=== PATIENT | male | born 1990 | race Caucasian/White ===

== ENCOUNTER 2017-11-16 09:41 | Emergency (ER) | payer BC, OTHER ==
[2017-11-16 10:06] VITALS: BP 106/64
[2017-11-16] MEDS ORDERED: Ketorolac 30 MG/ML SDV IM ONE (10:52)
--- NOTE | 2017-11-16 10:59 | EDM.PDOC ---
Scribed by [address] 11/16/17 1059 for Johnny Mora MD ED HPI GENERAL MEDICAL PROBLEM - General Chief Complaint: Back Pain or Injury Stated Complaint: [id number] PULL MUSCLE 11/13 HELPING FRIEND MOVE Time Seen by Provider: 11/16/17 10:45 Source of Information: Reports: Patient, RN, RN Notes Reviewed History Limitations: Reports: No Limitations - History of Present Illness INITIAL COMMENTS - FREE TEXT/NARRATIVE: Patient presents to ER with complaint of left lateral rib pain that happened on ,11/13/17, after lifting and twisting to move furniture. Onset Date: 10/16/17 Duration: Getting Worse Location: Reports: Generalized Quality: Reports: Ache Severity: Moderate Improves with: Reports: Rest Worsens with: Reports: Breathing, Movement Context: Reports: Lifting Associated Symptoms: Reports: No Other Symptoms Left Chest Pain Score (Numeric/FACES): 6 - Related Data Allergies Allergy/AdvReac Type Severity Reaction Status Date / Time No Known Allergies Allergy Verified 09/25/14 22:02 Home Meds: Home Meds . [No Known Home Meds] 09/25/14 [History] Past Medical History - Past Health History Medical/Surgical History: Denies Medical/Surgical History Other HEENT History: states has always had "soft teeth". has partial plate Social & Family History - Tobacco Use Smoking Status *Q: Current Every Day Smoker Years of Tobacco use: 20 Packs/Tins Daily: 1 - Caffeine Use Caffeine Use: Reports: Coffee, Energy Drinks, Soda - Recreational Drug Use Recreational Drug Use: No - Living Situation & Occupation Living situation: Reports: with Significant Other Occupation: Unemployed ED ROS GENERAL - Review of Systems Review Of Systems: ROS reveals no pertinent complaints other than HPI. ED EXAM, GENERAL - Physical Exam Exam: See Below Exam Limited By: No Limitations General Appearance: Alert, WD/WN, No Apparent Distress Eye Exam: Bilateral Eye: Normal Inspection Ears: Normal External Exam, Normal Canal, Hearing Grossly Normal, Normal TMs Nose: Normal Inspection, Normal Mucosa, No Blood Throat/Mouth: Normal Inspection, Normal Lips, Normal Teeth, Normal Gums, Normal Oropharynx, Normal Voice, No Airway Compromise Head: Atraumatic, Normocephalic Neck: Normal Inspection, Supple, Non-Tender, Full Range of Motion Respiratory/Chest: No Respiratory Distress, Lungs Clear, Normal Breath Sounds, No Accessory Muscle Use, Splinting (left chest), Other (left anterolateral lower chest wall tender to palpation with no visible swelling,bruising or deformity. No bony crepitus. Skin is intact. ). No: Rales, Rhonchi, Wheezing Cardiovascular: Normal Peripheral Pulses, Regular Rate, Rhythm, No Edema, No Gallop, No JVD, No Murmur, No Rub GI/Abdominal: Normal Bowel Sounds, Soft, Non-Tender, No Organomegaly, No Distention, No Abnormal Bruit, No Mass (Male) Exam: Deferred Rectal (Males) Exam: Deferred Back Exam: Normal Inspection, Full Range of Motion, NT Extremities: Normal Inspection, Normal Range of Motion, Non-Tender, Normal Capillary Refill, No Pedal Edema Neurological: Alert, Oriented, CN II-XII Intact, Normal Cognition, Normal Gait, Normal Reflexes, No Motor/Sensory Deficits Psychiatric: Normal Affect, Normal Mood Skin Exam: Warm, Dry, Intact, Normal Color, No Rash Course - Vital Signs Last Recorded V/S: Last Vital Signs Temp 37.6 C 11/16/17 10:05 Pulse 64 11/16/17 10:05 Resp 16 11/16/17 10:05 BP 106/64 11/16/17 10:05 Pulse Ox 100 11/16/17 10:05 - Orders/Labs/Meds Meds: Medications Discontinued Medications Generic Name Dose Route Start Last Admin Trade Name Jeremyq PRN Reason Stop Dose Admin Ketorolac Tromethamine 60 mg 11/16/17 10:52 11/16/17 10:57 Toradol IM 11/16/17 10:53 60 mg ONETIME ONE Administration Departure - Departure Time of Disposition: 10:55 Disposition: Home, Self-Care 01 Condition: Good Clinical Impression: Costochondritis Costochondral joint sprain Qualifiers: Encounter type: initial encounter Qualified Code(s): S23.41XA - Sprain of ribs , initial encounter - Discharge Information Instructions: Costochondritis, [id number], Muscle Strain, [id number] Forms: ED Department Discharge Additional Instructions: RX: Naprosyn 500mg. Follow up in clinic if not improved in 7 to 10 days. Activity as tolerated. Use a heating pad or moist hot towel over the area of pain as needed. I have read and agree with the documentation that has been completed regarding this visit. By signing this record, I attest that the documentation was completed in my physical presence and is an accurate record of the encounter.
== END 2017-11-16 11:00 | disposition home or self-care (01) ==
LOC: DL.ED 09:41
DX: S23.41XA Sprain of ribs, initial encounter (principal); M94.0 Chondrocostal junction syndrome [Tietze]; F17.210 Nicotine dependence, cigarettes, uncomplicated; X50.0XXA Overexertion from strenuous movement or load, initial encounter
CPT/HCPCS: 96372; 99283; J1885

== ENCOUNTER 2018-05-06 18:06 | Emergency (ER) | payer BC ==
[2018-05-06 18:43] VITALS: BP 122/75
--- NOTE | 2018-05-06 19:28 | EDM.PDOC ---
ED HPI GENERAL MEDICAL PROBLEM - General Chief Complaint: Lower Extremity Injury/Pain Stated Complaint: PAIN LEFT FOOT WHEN STRETCHES WRONG Time Seen by Provider: 05/06/18 20:06 Source of Information: Reports: Patient History Limitations: Reports: No Limitations - History of Present Illness INITIAL COMMENTS - FREE TEXT/NARRATIVE: c/o pain left great toe with extension, denies injury, If full extension sometimes pain radiates up leg. Present x one week. Has not taken anything for pain. No change in shoes No other symptoms Toe-Hailux Pain Score (Numeric/FACES): 5 - Related Data Allergies Allergy/AdvReac Type Severity Reaction Status Date / Time No Known Allergies Allergy Verified 05/06/18 18:40 Home Meds: Home Meds . [No Known Home Meds] 09/25/14 [History] Past Medical History - Past Health History Medical/Surgical History: Denies Medical/Surgical History Other HEENT History: states has always had "soft teeth". has partial plate Cardiovascular History: Reports: None Respiratory History: Reports: None Gastrointestinal History: Reports: None Genitourinary History: Reports: None Musculoskeletal History: Reports: None Neurological History: Reports: None Psychiatric History: Reports: None Endocrine/Metabolic History: Reports: None Hematologic History: Reports: None Immunologic History: Reports: None Oncologic (Cancer) History: Reports: None Dermatologic History: Reports: None - Infectious Disease History Infectious Disease History: Reports: None - Past Surgical History Head Surgeries/Procedures: Reports: None Social & Family History - Family History Family Medical History: Noncontributory - Tobacco Use Smoking Status *Q: Never Smoker Second Hand Smoke Exposure: No - Caffeine Use Caffeine Use: Reports: Soda - Recreational Drug Use Recreational Drug Use: No - Living Situation & Occupation Living situation: Reports: with Significant Other Occupation: Unemployed Review of Systems - Review of Systems Review Of Systems: See Below Constitutional: Denies: Chills, Fever Eyes: Reports: No Symptoms Ears: Reports: No Symptoms Nose: Reports: No Symptoms Mouth/Throat: Reports: No Symptoms Respiratory: Reports: No Symptoms Cardiovascular: Reports: No Symptoms GI/Abdominal: Reports: No Symptoms Musculoskeletal: Reports: Joint Pain Skin: Reports: No Symptoms ED EXAM, GENERAL - Physical Exam Exam: See Below Exam Limited By: No Limitations General Appearance: Alert, No Apparent Distress, Thin Eye Exam: Bilateral Eye: EOMI Ears: Normal External Exam Nose: Normal Inspection Throat/Mouth: Other (teeth absent) Head: Atraumatic, Normocephalic Neck: Normal Inspection, Full Range of Motion Respiratory/Chest: No Respiratory Distress, Lungs Clear Cardiovascular: Normal Peripheral Pulses, Regular Rate, Rhythm Back Exam: Full Range of Motion Extremities: Normal Range of Motion. No: Joint Swelling, Limited Range of Motion, Increased Warmth, Pallor Neurological: Alert, Oriented. No: Normal Cognition Skin Exam: Warm, Dry, Intact, Erythema (mild erdness left great toe DIP lateral upper border of nail faint erythema, no tenderness, mild ingrown nail) Course - Vital Signs Last Recorded V/S: Last Vital Signs Temp 98.6 F 05/06/18 18:40 Pulse 70 05/06/18 18:40 Resp 16 05/06/18 18:40 BP 122/75 05/06/18 18:40 Pulse Ox 98 05/06/18 18:40 - Orders/Labs/Meds Labs: Laboratory Tests 05/06/18 Range/Units 19:28 Uric Acid 5.2 (2.6-7.2) mg/dL Departure - Departure Time of Disposition: 20:07 Disposition: Home, Self-Care 01 Condition: Good Clinical Impression: Pain of left great toe - Discharge Information *PRESCRIPTION DRUG MONITORING PROGRAM REVIEWED*: No *COPY OF PRESCRIPTION DRUG MONITORING REPORT IN PATIENT XAVIER: No Instructions: Ingrown Toenail, Pain Medicine Instructions, [id number] Referrals: PCP,None [Primary Care Provider] - Forms: ED Department Discharge Additional Instructions: tylenol or ibuprofen for discomfort stiff boot increase fluids careful trimming on toenail. let corner edges grow out follwo up in clinic if not improving
== END 2018-05-06 20:17 | disposition home or self-care (01) ==
LOC: DL.ED 18:06
DX: K29.00 Acute gastritis without bleeding (principal); Q41.0 Congenital absence, atresia and stenosis of duodenum; E11.9 Type 2 diabetes mellitus without complications; Z88.1 Allergy status to other antibiotic agents; Z88.8 Allergy status to other drugs, medicaments and biological substances; Z79.899 Other long term (current) drug therapy
CPT/HCPCS: 36415; 84550; 99283

== ENCOUNTER 2019-04-13 22:20 | Emergency (ER) | payer BC ==
[2019-04-13 23:12] VITALS: BP 126/84; PULSE 75
--- NOTE | 2019-04-14 00:14 | EDM.PDOC ---
ED HPI GENERAL MEDICAL PROBLEM - General Chief Complaint: Headache Stated Complaint: SHAKING HEADACHES, BEGAN NEW PSYCH MEDS Time Seen by Provider: 04/13/19 23:10 Source of Information: Reports: Patient History Limitations: Reports: No Limitations - History of Present Illness INITIAL COMMENTS - FREE TEXT/NARRATIVE: Patient seen in clinic started on Sertraline for depression. First dose today, has felt shaky all day and has headache. No nausea or vomiting. no suicidal thoughts reported. - Related Data Allergies Allergy/AdvReac Type Severity Reaction Status Date / Time No Known Allergies Allergy Verified 09/12/18 00:04 Home Meds: Home Meds . [No Known Home Meds] 09/25/14 [History] Past Medical History - Past Health History Medical/Surgical History: Denies Medical/Surgical History Other HEENT History: states has always had "soft teeth". has partial plate Cardiovascular History: Reports: None Respiratory History: Reports: None Gastrointestinal History: Reports: None Genitourinary History: Reports: None Musculoskeletal History: Reports: None Neurological History: Reports: None Psychiatric History: Reports: Depression Endocrine/Metabolic History: Reports: None Hematologic History: Reports: None Immunologic History: Reports: None Oncologic (Cancer) History: Reports: None Dermatologic History: Reports: None - Infectious Disease History Infectious Disease History: Reports: None - Past Surgical History Head Surgeries/Procedures: Reports: None Social & Family History - Family History Family Medical History: Noncontributory - Tobacco Use Smoking Status *Q: Current Every Day Smoker Years of Tobacco use: 10 Packs/Tins Daily: 1 Second Hand Smoke Exposure: Yes - Caffeine Use Caffeine Use: Reports: Soda - Recreational Drug Use Recreational Drug Use: No - Living Situation & Occupation Living situation: Reports: with Significant Other Occupation: Unemployed ED ROS GENERAL - Review of Systems Review Of Systems: Comprehensive ROS is negative, except as noted in HPI. - Physical Exam Exam: See Below Exam Limited By: No Limitations General Appearance: Alert, Anxious Eye Exam: Bilateral Eye: EOMI Ears: Normal External Exam Nose: Normal Inspection Throat/Mouth: Normal Inspection Head Exam: Atraumatic, Normocephalic Neck: Normal Inspection Respiratory/Chest: No Respiratory Distress, Normal Breath Sounds Cardiovascular: Normal Peripheral Pulses, Regular Rate, Rhythm Neuro Exam (Abbreviated): Alert, Oriented, CN II-XII Intact, Normal Cognition, Normal Gait, No Motor/Sensory Deficits Back Exam: Full Range of Motion Extremities: Normal Range of Motion Psychiatric: Anxious, Other (wringing hands, no tremor) Skin Exam: Warm, Dry, Intact, Normal Color Course - Vital Signs Last Recorded V/S: Last Vital Signs Temp 98.8 F 04/13/19 23:06 Pulse 75 04/13/19 23:06 Resp 18 04/13/19 23:06 BP 126/84 04/13/19 23:06 Pulse Ox 100 04/13/19 23:06 Departure - Departure Time of Disposition: 00:09 Disposition: Home, Self-Care 01 Condition: Good Clinical Impression: Medication adverse effect Qualifiers: Encounter type: initial encounter Qualified Code(s): T50.905A - Adverse effect of unspecified drugs, medicaments and biological substances, initial encounter - Discharge Information *PRESCRIPTION DRUG MONITORING PROGRAM REVIEWED*: No *COPY OF PRESCRIPTION DRUG MONITORING REPORT IN PATIENT XAVIER: No Instructions: Serotonin Syndrome Referrals: Sadaf Stephens MD [Primary Care Provider] - Forms: ED Department Discharge Additional Instructions: Decrease sertraline to 12.5mg or 1/2 tablet daily at bed x 4 days then increase to 25mg follow up with primary provider on Friday increase fluids take medication with food Sepsis Event Note - Evaluation Sepsis Screening Result: No Definite Risk - Focused Exam Vital Signs: Vital Signs Temp Pulse Resp BP Pulse Ox 04/13/19 23:06 98.8 F 75 18 126/84 100 Date Exam was Performed: 04/14/19 Time Exam was Performed: 06:32
== END 2019-04-14 00:16 | disposition home or self-care (01) ==
LOC: DL.ED 22:20
DX: G44.40 Drug-induced headache, not elsewhere classified, not intractable (principal); R25.9 Unspecified abnormal involuntary movements; T43.225A Adverse effect of selective serotonin reuptake inhibitors, initial encounter; F32.9 Major depressive disorder, single episode, unspecified; F17.210 Nicotine dependence, cigarettes, uncomplicated
CPT/HCPCS: 99283

== ENCOUNTER 2019-08-11 12:08 | Emergency (ER) | payer BC ==
[2019-08-11 12:46] VITALS: BP 125/74; PULSE 67
[2019-08-11] MEDS ORDERED: Bacitracin Oint 1 GM U/D Packet TOP ONE (13:00)
--- NOTE | 2019-08-11 13:06 | EDM.PDOC ---
ED HPI GENERAL MEDICAL PROBLEM - General Chief Complaint: Upper Extremity Injury/Pain Stated Complaint: SMASHED THUMB WITH BACK PART OF AXE Time Seen by Provider: 08/11/19 12:56 Source of Information: Reports: Patient History Limitations: Reports: No Limitations - History of Present Illness INITIAL COMMENTS - FREE TEXT/NARRATIVE: This 28 yo male patient reports to the ED after hitting his left thumb with the back of an ax. The patient was splitting wood using a awl when he missed the awl with the axe an hit his thumb. The patient reports he had a tetanus shot about 1 year ago. Onset: Today Duration: Minutes: Location: Reports: Upper Extremity, Left Quality: Reports: Ache, Pressure Severity: Moderate Improves with: Reports: Rest Worsens with: Reports: Movement Context: Reports: Other Associated Symptoms: Reports: No Other Symptoms - Related Data Allergies Allergy/AdvReac Type Severity Reaction Status Date / Time No Known Allergies Allergy Verified 09/12/18 00:04 Home Meds: Home Meds . [No Known Home Meds] 09/25/14 [History] Past Medical History - Past Health History Medical/Surgical History: Denies Medical/Surgical History Other HEENT History: states has always had "soft teeth". has partial plate Cardiovascular History: Reports: None Respiratory History: Reports: None Gastrointestinal History: Reports: None Genitourinary History: Reports: None Musculoskeletal History: Reports: None Neurological History: Reports: None Psychiatric History: Reports: Depression Endocrine/Metabolic History: Reports: None Hematologic History: Reports: None Immunologic History: Reports: None Oncologic (Cancer) History: Reports: None Dermatologic History: Reports: None - Infectious Disease History Infectious Disease History: Reports: None - Past Surgical History Head Surgeries/Procedures: Reports: None Social & Family History - Family History Family Medical History: Noncontributory - Caffeine Use Caffeine Use: Reports: Soda - Living Situation & Occupation Living situation: Reports: with Significant Other Occupation: Unemployed Review of Systems - Review of Systems Review Of Systems: Comprehensive ROS is negative, except as noted in HPI. ED EXAM, GENERAL - Physical Exam Exam: See Below Exam Limited By: No Limitations General Appearance: Alert, WD/WN, Mild Distress Eye Exam: Bilateral Eye: EOMI, Normal Inspection, PERRL Ears: Normal External Exam, Normal Canal, Hearing Grossly Normal, Normal TMs Nose: Normal Inspection, Normal Mucosa, No Blood Throat/Mouth: Normal Inspection, Normal Lips, Normal Teeth, Normal Gums, Normal Oropharynx, Normal Voice, No Airway Compromise Head: Atraumatic Neck: Normal Inspection, Supple, Non-Tender, Full Range of Motion Respiratory/Chest: No Respiratory Distress, Lungs Clear, Normal Breath Sounds, No Accessory Muscle Use, Chest Non-Tender Cardiovascular: Normal Peripheral Pulses, Regular Rate, Rhythm, No Edema, No Gallop, No JVD, No Murmur, No Rub GI/Abdominal: Normal Bowel Sounds, Soft, Non-Tender, No Organomegaly, No Distention, No Abnormal Bruit, No Mass (Male) Exam: Deferred Rectal (Males) Exam: Deferred Back Exam: Normal Inspection, Full Range of Motion, NT Extremities: Arm Pain (left thumb pain) Neurological: Alert, Oriented, CN II-XII Intact, Normal Cognition, Normal Gait, Normal Reflexes, No Motor/Sensory Deficits Psychiatric: Normal Affect, Normal Mood Skin Exam: Wound/Incision (to the left distal thumb) Lymphatic: No Adenopathy ED TRAUMA EXTREMITY PROCEDURES - Splinting Left Thumb Splint Site: Left thumb Pre-Procedure NV Status: Normal Post-Procedure NV Status: Normal Splint Material: Aluminum-Foam Splint Design: Volar Applied & Form Fitted By: Nurse Provider Post-Splint Application NV Check: NV Status Normal, Good Position Complications: No Course - Vital Signs Last Recorded V/S: Last Vital Signs Temp 36.7 C 08/11/19 12:35 Pulse 67 08/11/19 12:35 Resp 20 08/11/19 12:35 BP 125/74 08/11/19 12:35 Pulse Ox 99 08/11/19 12:35 - Orders/Labs/Meds Orders: Active Orders 24 hr Category Date Time Status Fingers Thumb Lt FA [CR] Urgent Exams 08/11/19 12:34 Taken Bacitracin [Bacitracin Oint 1 GM] Med 08/11/19 13:00 Once 1 dose TOP ONETIME ONE Departure - Departure Time of Disposition: 13:04 Disposition: Home, Self-Care 01 Condition: Fair Clinical Impression: Open fracture of tuft of distal phalanx of left thumb - Discharge Information *PRESCRIPTION DRUG MONITORING PROGRAM REVIEWED*: Not Applicable *COPY OF PRESCRIPTION DRUG MONITORING REPORT IN PATIENT XAVIER: Not Applicable Instructions: Finger Fracture, Adult, [id number] Care Plan Goals: The patient was advised of the examination and x-ray results during the visit. The patient's finger was splinted with a padded aluminum splint and dressed with a non-adhering bandage. The patient was discharged with a script for Keflex (500 mg) #30 to take 1 by mouth 3 times per day for 10 days. The patient was encouraged to rest, ice and elevate his left hand. The patient was given a work note to return to work on 08/13/19. If the patient has any additional symptoms or concerns, the patient should either return to the emergency department or visit his primary care facility. Sepsis Event Note - Evaluation Sepsis Screening Result: No Definite Risk - Focused Exam Vital Signs: Vital Signs Temp Pulse Resp BP Pulse Ox 08/11/19 12:35 36.7 C 67 20 125/74 99 Date Exam was Performed: 08/11/19 Time Exam was Performed: 13:00 - My Orders Last 24 Hours: My Active Orders 08/11/19 12:34 Fingers Thumb Lt FA [CR] Urgent 08/11/19 13:00 Bacitracin [Bacitracin Oint 1 GM] 1 dose TOP ONETIME ONE - Assessment/Plan Last 24 Hours: My Active Orders 08/11/19 12:34 Fingers Thumb Lt FA [CR] Urgent 08/11/19 13:00 Bacitracin [Bacitracin Oint 1 GM] 1 dose TOP ONETIME ONE
== END 2019-08-11 13:20 | disposition home or self-care (01) ==
LOC: DL.ED 12:08
DX: S62.522B Displaced fracture of distal phalanx of left thumb, initial encounter for open fracture (principal); W27.0XXA Contact with workbench tool, initial encounter
CPT/HCPCS: 29125; 73140-FA; 99283-25

== ENCOUNTER 2020-09-01 03:33 | Emergency (ER) | payer BC, OTHER ==
--- NOTE | 2020-09-01 03:50 | EDM.PDOC ---
ED HPI GENERAL MEDICAL PROBLEM - General Stated Complaint: FEET ISSUES HARD TO WALK Time Seen by Provider: 09/01/20 06:10 Source of Information: Reports: Patient, RN History Limitations: Reports: No Limitations - History of Present Illness INITIAL COMMENTS - FREE TEXT/NARRATIVE: EDdf with c/o bilateral foot pain for last month and half. Seen in clinic one time told to wear flip flops. Has not followed up with clinicDenied injury. Describes burning sensation. Bilateral Feet Pain Score (Numeric/FACES): 10 - Related Data Allergies Allergy/AdvReac Type Severity Reaction Status Date / Time No Known Allergies Allergy Verified 09/12/18 00:04 Home Meds: Home Meds . [No Known Home Meds] 09/25/14 [History] Past Medical History - Past Health History Medical/Surgical History: Denies Medical/Surgical History Other HEENT History: states has always had "soft teeth". has partial plate Cardiovascular History: Reports: None Respiratory History: Reports: None Gastrointestinal History: Reports: None Genitourinary History: Reports: None Musculoskeletal History: Reports: None Neurological History: Reports: None Psychiatric History: Reports: Depression Endocrine/Metabolic History: Reports: None Hematologic History: Reports: None Immunologic History: Reports: None Oncologic (Cancer) History: Reports: None Dermatologic History: Reports: None - Infectious Disease History Infectious Disease History: Reports: None - Past Surgical History Head Surgeries/Procedures: Reports: None Social & Family History - Family History Family Medical History: No Pertinent Family History - Caffeine Use Caffeine Use: Reports: Soda - Living Situation & Occupation Living situation: Reports: with Significant Other Occupation: Unemployed ED ROS GENERAL - Review of Systems Review Of Systems: Comprehensive ROS is negative, except as noted in HPI. ED EXAM, GENERAL - Physical Exam Exam: See Below Exam Limited By: No Limitations General Appearance: Alert, Mild Distress, Thin Eye Exam: Bilateral Eye: EOMI Ears: Hearing Grossly Normal Throat/Mouth: Normal Voice Head: Atraumatic, Normocephalic Respiratory/Chest: No Respiratory Distress, Normal Breath Sounds Cardiovascular: Normal Peripheral Pulses, Regular Rate, Rhythm Neurological: Alert, Oriented Psychiatric: Normal Affect Skin Exam: Warm, Erythema, Rash (bilateral tinea plantar and between toes., calused aound heels cracked, superfical blistering between toes, plantar surface errythematous) Course - Vital Signs Last Recorded V/S: Last Vital Signs Temp 98.1 F 09/01/20 03:48 Pulse 80 09/01/20 03:48 Resp 16 09/01/20 03:48 BP 130/77 09/01/20 03:48 Pulse Ox 99 09/01/20 03:48 Departure - Departure Time of Disposition: 06:44 Disposition: Home, Self-Care 01 Condition: Good Clinical Impression: Tinea pedis Qualifiers: Laterality: bilateral Qualified Code(s): B35.3 - Tinea pedis - Discharge Information *PRESCRIPTION DRUG MONITORING PROGRAM REVIEWED*: No *COPY OF PRESCRIPTION DRUG MONITORING REPORT IN PATIENT XAVIER: No Instructions: Athlete's Foot, [id number] Referrals: PCP,None [Primary Care Provider] - Forms: ED Department Discharge Additional Instructions: wash feet twice daily clean dry sock feet open to air when possible tinnactin cream twice daily to affected area until healed clinic follow up next week
[2020-09-01 04:19] VITALS: BP 130/77; PULSE 80
== END 2020-09-01 06:52 | disposition home or self-care (01) ==
LOC: DL.ED 03:33
DX: B35.3 Tinea pedis (principal)
CPT/HCPCS: 99283

== ENCOUNTER 2021-01-07 19:39 | Emergency (ER) | payer OTHER ==
[2021-01-07 19:55] VITALS: BP 131/62; PULSE 91
[2021-01-07] MEDS ORDERED: Acetaminophen 325 MG Tab PO ONE (20:02)
[2021-01-07 20:51] LABS: CORONAVIRUS COVID-19 NAA NEGATIVE (NEGATIVE)
[2021-01-07 21:10] LABS: ANION GAP 12.5 mEq/L (7-13); CHLORIDE,CL 103 mmol/L (98-107); SODIUM,NA 140 mmol/L (136-145)
[2021-01-07] MEDS ORDERED: Benzonatate 100 MG Cap PO ONE (21:14)
[2021-01-07] MEDS ORDERED: Azithromycin 250 MG Tab PO ONE (21:14)
--- NOTE | 2021-01-07 21:14 | EDM.PDOC ---
ED HPI GENERAL MEDICAL PROBLEM - General Chief Complaint: ENT Problem Stated Complaint: SINUS INFECTION Time Seen by Provider: 01/07/21 19:55 Source of Information: Reports: Patient History Limitations: Reports: No Limitations - History of Present Illness INITIAL COMMENTS - FREE TEXT/NARRATIVE: ED with c/o cold sx, congestion cough, fever, upper body aches, cough productive at times. Has been using oTC cough cold medications, not helping much. No nausea vomiting or diarrhea, appetite decreased. some loss of taste and smell from congestion. Onset sx one week ago, felt better yesterday then worse today. - Related Data Allergies Allergy/AdvReac Type Severity Reaction Status Date / Time No Known Allergies Allergy Verified 09/12/18 00:04 Home Meds: Home Meds . [No Known Home Meds] 09/25/14 [History] Past Medical History - Past Health History Medical/Surgical History: Denies Medical/Surgical History Other HEENT History: states has always had "soft teeth". has partial plate Cardiovascular History: Reports: None Respiratory History: Reports: None Gastrointestinal History: Reports: None Genitourinary History: Reports: None Musculoskeletal History: Reports: None Neurological History: Reports: None Psychiatric History: Reports: ADHD, Bipolar, Depression, PTSD Endocrine/Metabolic History: Reports: None Hematologic History: Reports: None Immunologic History: Reports: None Oncologic (Cancer) History: Reports: None Dermatologic History: Reports: None - Infectious Disease History Infectious Disease History: Reports: None - Past Surgical History Head Surgeries/Procedures: Reports: None HEENT Surgical History: Reports: None Social & Family History - Family History Family Medical History: No Pertinent Family History - Tobacco Use Tobacco Use Status *Q: Current Every Day Tobacco User Years of Tobacco use: 8 Packs/Tins Daily: 1 - Caffeine Use Caffeine Use: Reports: Soda - Living Situation & Occupation Living situation: Reports: with Significant Other Occupation: Unemployed ED ROS GENERAL - Review of Systems Review Of Systems: Comprehensive ROS is negative, except as noted in HPI. ED EXAM, GENERAL - Physical Exam Exam: See Below Exam Limited By: No Limitations General Appearance: Alert, Mild Distress, Thin Eye Exam: Bilateral Eye: EOMI Ears: Normal External Exam Nose: Normal Inspection Throat/Mouth: Normal Inspection Head: Atraumatic, Normocephalic Neck: Normal Inspection Respiratory/Chest: No Respiratory Distress, Decreased Breath Sounds, Wheezing (expiratory) Cardiovascular: Normal Peripheral Pulses, Regular Rate, Rhythm GI/Abdominal: Normal Bowel Sounds, Soft Course - Vital Signs Last Recorded V/S: Last Vital Signs Temp 101.5 F H 01/07/21 20:10 Pulse 91 01/07/21 19:51 Resp 20 01/07/21 19:51 BP 131/62 01/07/21 19:51 Pulse Ox 96 01/07/21 19:51 - Orders/Labs/Meds Orders: Active Orders 24 hr Category Date Time Status CXR [Chest 1V Frontal] [CR] Urgent Exams 01/07/21 20:24 Taken CULTURE BLOOD [BC] Stat Lab 01/07/21 20:35 Received LACTIC ACID [CHEM] Stat Lab 01/07/21 20:35 Received Labs: Laboratory Tests 01/07/21 01/07/21 01/07/21 Range/Units 20:11 20:35 20:35 WBC 12.2 H (5.0-10.0) 10^3/uL RBC 4.01 L (4.6-6.2) 10^6/uL Hgb 12.8 L (14.0-18.0) g/dL Hct 38.1 L (40.0-54.0) % MCV 95.0 (80-100) fL MCH 31.9 (27.0-34.0) pg MCHC 33.6 (33.0-35.0) g/dL Plt Count 289 (150-450) 10^3/uL Neut % (Auto) 75.3 H (42.2-75.2) % Lymph % (Auto) 13.3 L (20.5-50.1) % [place] % (Auto) 9.9 H (2-8) % Eos % (Auto) 1.3 (1.0-3.0) % Baso % (Auto) 0.2 (0.0-1.0) % Sodium 140 (136-145) mmol/L Potassium 3.5 (3.5-5.1) mmol/L Chloride 103 (98-107) mmol/L Carbon Dioxide 28 (21-32) mmol/L Anion Gap 12.5 (7-13) mEq/L BUN 9 (7-18) mg/dL Creatinine 0.82 (0.70-1.30) mg/dL Est Cr Clr Drug Dosing 105.75 mL/min Estimated GFR (MDRD) > 60 BUN/Creatinine Ratio 11.0 (No establ ref range) Glucose 95 (70-99) mg/dL Calcium 8.7 (8.5-10.1) mg/dL Total Bilirubin 0.4 (0.2-1.0) mg/dL AST 12 L (15-37) U/L ALT 20 (16-63) U/L Alkaline Phosphatase 54 (46-116) U/L Total Protein 7.1 (6.4-8.2) g/dL Albumin 3.2 L (3.4-5.0) g/dL Globulin 3.9 Albumin/Globulin Ratio 0.82 Influenza Type A RNA Negative (NEGATIVE) Influenza Type B RNA Negative (NEGATIVE) SARS-CoV-2 RNA (YE) Negative (NEGATIVE) Meds: Medications Discontinued Medications Generic Name Dose Route Start Last Admin Trade Name Freq PRN Reason Stop Dose Admin Acetaminophen 650 mg 01/07/21 20:02 01/07/21 20:10 Acetaminophen 325 Mg Tab PO 01/07/21 20:03 650 mg NOW ONE Administration Departure - Departure Time of Disposition: 21:11 Disposition: Home, Self-Care 01 Condition: Good Clinical Impression: Pneumonia - Discharge Information *PRESCRIPTION DRUG MONITORING PROGRAM REVIEWED*: No *COPY OF PRESCRIPTION DRUG MONITORING REPORT IN PATIENT XAVIER: No Instructions: Community-Acquired Pneumonia, Adult Forms: ED Department Discharge Additional Instructions: azithromycin 250mg daily humidification muccinex or robitussin per label instructions albuterol inhaler 2 puffs every 4 hours as needed for cough/ wheeze increase fluids diet as tolerated follow u if symptoms worsen Sepsis Event Note (ED) - Evaluation Sepsis Screening Result: No Definite Risk - Focused Exam Vital Signs: Vital Signs Temp Temp Pulse Resp BP Pulse Ox 01/07/21 20:10 101.5 F H 01/07/21 19:51 101.5 F H 91 20 131/62 96 - My Orders Last 24 Hours: My Active Orders 01/07/21 20:24 CXR [Chest 1V Frontal] [CR] Urgent 01/07/21 20:35 CULTURE BLOOD [BC] Stat LACTIC ACID [CHEM] Stat - Assessment/Plan Last 24 Hours: My Active Orders 01/07/21 20:24 CXR [Chest 1V Frontal] [CR] Urgent 01/07/21 20:35 CULTURE BLOOD [BC] Stat LACTIC ACID [CHEM] Stat
--- NOTE | 2021-01-07 21:54 | CR ---
PROCEDURE INFORMATION: Exam: XR Chest Exam date and time: 01/07/2021 8:27 PM Age: 30 years old Clinical indication: Cough and fever; Additional info: Cough fever TECHNIQUE: Imaging protocol: XR of the chest. Views: 1 view. COMPARISON: No relevant prior studies available. FINDINGS: Lungs: Left lower lobe airspace disease suspicious for pneumonia. Pleural spaces: No pleural effusion. No pneumothorax. Heart/Mediastinum: The cardiac silhouette is mildly enlarged. Mediastinal contours are unremarkable. Bones/joints: Unremarkable for age. IMPRESSION: 1. Left lower lobe airspace disease suspicious for pneumonia. Recommend followup chest x-ray to ensure resolution. 2. The cardiac silhouette is mildly enlarged.
== END 2021-01-07 21:34 | disposition home or self-care (01) ==
LOC: DL.ED 19:39
DX: J18.9 Pneumonia, unspecified organism (principal); Z72.0 Tobacco use; Z20.822 Contact with and (suspected) exposure to COVID-19
CPT/HCPCS: 0240U; 36415; 71045; 80053; 83605; 85025; 87040; 99283; A9270

== ENCOUNTER 2021-01-10 19:28 | Emergency (ER) | payer OTHER ==
--- NOTE | 2021-01-10 19:50 | EDM.PDOC ---
<John Hess - Last Filed: 01/10/21 19:40> ED HPI GENERAL MEDICAL PROBLEM - General Chief Complaint: Respiratory Problem Stated Complaint: 98.3, PNEUMONIA, HARD TIME SLEEPING PER PT Time Seen by Provider: 01/10/21 20:15 - Related Data Allergies Allergy/AdvReac Type Severity Reaction Status Date / Time No Known Allergies Allergy Verified 01/10/21 19:36 Home Meds: Home Meds Albuterol Sulfate [Proair Digihaler] 01/10/21 [History] Azithromycin 250 mg PO DAILY 01/10/21 [History] guaiFENesin [Robitussin] 01/10/21 [History] Past Medical History - Past Health History Medical/Surgical History: Denies Medical/Surgical History Other HEENT History: states has always had "soft teeth". has partial plate Cardiovascular History: Reports: None Respiratory History: Reports: None Gastrointestinal History: Reports: None Genitourinary History: Reports: None Musculoskeletal History: Reports: None Neurological History: Reports: None Psychiatric History: Reports: ADHD, Bipolar, Depression, PTSD Endocrine/Metabolic History: Reports: None Hematologic History: Reports: None Immunologic History: Reports: None Oncologic (Cancer) History: Reports: None Dermatologic History: Reports: None - Infectious Disease History Infectious Disease History: Reports: None - Past Surgical History Head Surgeries/Procedures: Reports: None HEENT Surgical History: Reports: None Social & Family History - Family History Family Medical History: No Pertinent Family History - Caffeine Use Caffeine Use: Reports: Soda - Living Situation & Occupation Living situation: Reports: with Significant Other Occupation: Unemployed Departure - Departure Disposition: Home, Self-Care 01 Clinical Impression: Pneumonia Qualifiers: Pneumonia type: due to unspecified organism Laterality: bilateral Lung location: lower lobe of lung Qualified Code(s): J18.9 - Pneumonia, unspecified organism - Discharge Information Instructions: Community-Acquired Pneumonia, Adult, [id number] Referrals: PCP,None [Primary Care Provider] - Forms: ED Department Discharge Additional Instructions: RX: Augmentin 875 mg by mouth twice daily for 7 days. Tylenol and/or Ibuprofen as needed for fevers. Follow-up with Family Doctor within 7 days or sooner as needed. <Pat Temple - Last Filed: 01/10/21 20:50> ED HPI GENERAL MEDICAL PROBLEM - General Source of Information: Reports: Patient History Limitations: Reports: No Limitations - History of Present Illness INITIAL COMMENTS - FREE TEXT/NARRATIVE: The patient reports a 7-10 day history of cough. He presented to the ED 4-days ago when he was diagnosed with pneumonia and discharged with a course of azithromycin. He reports he stayed home from work until yesterday and returned to work today. He reports he was feeling well earlier but began to notice worsening of his cough and shortness of breath. He denies chest pain. He reports some right shoulder and axilla pain with coughing. She denies hemoptysis. He denies fevers, chills, nausea, vomiting, diarrhea, constipation. He reports a history of white mouth plaque and sore throat over the last week. He reports he is currently sexually active without new partners. He denies weight loss. BMI is currently 16.6. He denies concern for STIs. He reports he was last tested for HIV earlier this year which was negative. He reports a history of smoking tobacco 1 pack/day. He reports 2 beers on average/night. He denies recreational drug use. He denies other symptoms or concerns at this time. Left Shoulder Pain Score (Numeric/FACES): 3 ED ROS GENERAL - Review of Systems Review Of Systems: See Below Constitutional: Reports: Fever, Chills, Malaise, Fatigue, Decreased Appetite. Denies: Night Sweats, Weight Loss HEENT: Reports: Throat Pain. Denies: Ear Pain, Eye Pain, Nosebleed Respiratory: Reports: Shortness of Breath, Cough, Sputum. Denies: Wheezing, Hemoptysis Cardiovascular: Denies: Chest Pain, Edema, Orthopnea, Palpitations, Syncope GI/Abdominal: Denies: Abdominal Pain, Bloody Stool, Constipation, Diarrhea, Difficulty Swallowing, Hematemesis, Hematochezia, Melena, Vomiting : Reports: No Symptoms Musculoskeletal: Reports: No Symptoms Skin: Reports: Lesions (Large pigmented nevus located on upper back in midline.). Denies: Pallor, Bruising, Rash, Erythema, Lumps Neurological: Reports: No Symptoms. Denies: Confusion, Dizziness, Headache, Paresthesia, Seizure, Change in Speech, Gait Disturbance Psychiatric: Reports: No Symptoms Hematologic/Lymphatic: Reports: No Symptoms Immunologic: Reports: No Symptoms ED EXAM, GENERAL - Physical Exam Exam Limited By: No Limitations General Appearance: Alert, No Apparent Distress, Thin Eye Exam: Bilateral Eye: Normal Inspection, PERRL Ears: Normal External Exam Nose: Normal Inspection, Normal Mucosa, No Blood. No: Nasal Drainage Throat/Mouth: Other (Oral thrush present) Head: Atraumatic, Normocephalic Neck: Normal Inspection, Supple, Non-Tender, Lymphadenopathy (L). No: Lymphadenopathy (R) (bilateral LAD, tender) Respiratory/Chest: No Respiratory Distress, Crackles (bilateral crackles bibasally worse on right) Cardiovascular: Normal Peripheral Pulses, Regular Rate, Rhythm, No Murmur, No Rub GI/Abdominal: Normal Bowel Sounds, Soft, Non-Tender, No Organomegaly, No Distention, No Mass Back Exam: Normal Inspection, Full Range of Motion Extremities: Normal Inspection, Normal Range of Motion Neurological: Alert, Oriented, Normal Cognition, No Motor/Sensory Deficits Psychiatric: Normal Affect, Normal Mood Skin Exam: Warm, Normal Color, No Rash Course - Re-Assessments/Exams Free Text/Narrative Re-Assessment/Exam: 01/10/21 20:57 Patients results of testing including labs, CXR was discussed with patient. All questions answered. Return criteria discussed. 01/10/21 21:01 Departure - Departure Condition: Good - Discharge Information *PRESCRIPTION DRUG MONITORING PROGRAM REVIEWED*: Not Applicable *COPY OF PRESCRIPTION DRUG MONITORING REPORT IN PATIENT XAVIER: Not Applicable <Judy Perkins - Last Filed: 01/13/21 06:54> ED EXAM, GENERAL - Physical Exam Exam: See Below Course - Vital Signs Last Recorded V/S: Last Vital Signs Temp 100.2 F 01/10/21 19:41 Pulse 70 01/10/21 20:38 Resp 20 01/10/21 20:38 BP 111/74 01/10/21 20:38 Pulse Ox 98 01/10/21 20:38 - Orders/Labs/Meds Labs: Laboratory Tests 01/10/21 01/10/21 01/10/21 Range/Units 20:05 20:05 20:15 WBC 13.9 H (5.0-10.0) 10^3/uL RBC 4.31 L (4.6-6.2) 10^6/uL Hgb 13.6 L (14.0-18.0) g/dL Hct 41.4 (40.0-54.0) % MCV 96.1 (80-100) fL MCH 31.6 (27.0-34.0) pg MCHC 32.9 L (33.0-35.0) g/dL Plt Count 342 (150-450) 10^3/uL Neut % (Auto) 73.2 (42.2-75.2) % Lymph % (Auto) 17.5 L (20.5-50.1) % [place] % (Auto) 6.7 (2-8) % Eos % (Auto) 2.4 (1.0-3.0) % Baso % (Auto) 0.2 (0.0-1.0) % Sodium 143 (136-145) mmol/L Potassium 3.7 (3.5-5.1) mmol/L Chloride 102 (98-107) mmol/L Carbon Dioxide 31 (21-32) mmol/L Anion Gap 13.7 H (7-13) mEq/L BUN 6 L (7-18) mg/dL Creatinine 0.74 (0.70-1.30) mg/dL Est Cr Clr Drug Dosing 112.45 mL/min Estimated GFR (MDRD) > 60 BUN/Creatinine Ratio 8.1 (No establ ref range) Glucose 86 (70-99) mg/dL Calcium 9.2 (8.5-10.1) mg/dL Total Bilirubin 0.2 (0.2-1.0) mg/dL AST 20 (15-37) U/L ALT 31 (16-63) U/L Alkaline Phosphatase 59 (46-116) U/L C-Reactive Protein 2.1 H (0.0-0.9) mg/dL Total Protein 7.5 (6.4-8.2) g/dL Albumin 3.3 L (3.4-5.0) g/dL Globulin 4.2 Albumin/Globulin Ratio 0.79 Urine Opiates Screen Negative (NEGATIVE) Ur Oxycodone Screen Negative (NEGATIVE) Urine Methadone Screen Negative (NEGATIVE) Ur Barbiturates Screen Negative (NEGATIVE) U Tricyclic Antidepress Negative (NEGATIVE) Ur Phencyclidine Scrn Negative (NEGATIVE) Ur Amphetamine Screen Negative (NEGATIVE) U Methamphetamines Scrn Negative (NEGATIVE) Urine MDMA Screen Negative (NEGATIVE) U Benzodiazepines Scrn Negative (NEGATIVE) Urine Cocaine Screen Negative (NEGATIVE) U Marijuana (THC) Screen Negative (NEGATIVE) Meds: Medications Discontinued Medications Generic Name Dose Route Start Last Admin Trade Name Titi PRN Reason Stop Dose Admin Acetaminophen 1,000 mg 01/10/21 20:36 01/10/21 20:43 Acetaminophen 500 Mg Tab PO 01/10/21 20:37 1,000 mg ONETIME ONE Administration Albuterol 2.5 mg 01/10/21 20:42 01/10/21 20:48 Albuterol 0.083% 2.5 Mg/3 Ml Neb Soln NEB 01/10/21 20:43 2.5 mg ONETIME ONE Administration Amoxicillin/Clavulanate Potassium 1 tab 01/10/21 20:40 01/10/21 20:46 Amoxicillin/Clavulanate K 875-125 Mg Tab PO 01/10/21 20:41 1 tab ONETIME ONE Administration Departure - Departure Time of Disposition: 22:00 Attestation - Resident - Attestation Statement Attestation Statement: I saw and evaluated the patient. Discussed with resident and agree with residents findings and plan as documented in the residents note.
[2021-01-10 20:34] LABS: ANION GAP 13.7 mEq/L (7-13); CHLORIDE,CL 102 mmol/L (98-107); SODIUM,NA 143 mmol/L (136-145)
[2021-01-10 20:36] LABS: AMPHETAMINES,URINE NEGATIVE (NEGATIVE); BARBITURATES,URINE NEGATIVE (NEGATIVE); BENZODIAZEPINE,URINE NEGATIVE (NEGATIVE); MDMA (ECSTASY), URINE NEGATIVE (NEGATIVE); METHADONE,URINE NEGATIVE (NEGATIVE); METHAMPHETAMINES,URINE NEGATIVE (NEGATIVE); OPIATES,URINE NEGATIVE (NEGATIVE); OXYCODONE,URINE NEGATIVE (NEGATIVE); PHENCYCLIDINE,URINE NEGATIVE (NEGATIVE); TCA,URINE NEGATIVE (NEGATIVE)
[2021-01-10] MEDS ORDERED: Acetaminophen 500 MG Tab PO ONE (20:36)
[2021-01-10 20:38] VITALS: BP 111/74; PULSE 70
[2021-01-10] MEDS ORDERED: Amoxicillin/Clavulanate K 875-125 MG Tab PO ONE (20:40)
[2021-01-10] MEDS ORDERED: Albuterol 0.083% 2.5 MG/3 ML Neb Soln NEB ONE (20:42)
--- NOTE | 2021-01-10 20:45 | CR ---
PROCEDURE INFORMATION: Exam: XR Chest Exam date and time: 01/10/2021 8:08 PM Age: 30 years old Clinical indication: Cough; Additional info: Cough pneumonia not improving TECHNIQUE: Imaging protocol: XR of the chest. Views: 2 views. COMPARISON: CR Chest 1V Frontal 01/07/2021 8:27 PM FINDINGS: Lungs: Slight worsening interstitial markings throughout. No focal consolidation. Pleural spaces: Unremarkable. No pleural effusion. No pneumothorax. Heart/Mediastinum: Unremarkable. No cardiomegaly. Bones/joints: Unremarkable. IMPRESSION: Worsening interstitial process most likely bronchitis. Atypical viral pneumonia not excluded.
== END 2021-01-10 21:18 | disposition home or self-care (01) ==
LOC: DL.ED 19:28
DX: J18.9 Pneumonia, unspecified organism (principal)
CPT/HCPCS: 36415; 71046; 80053; 80305; 85025; 86140; 87081; 87210; 87430; 99285; A9270; J7613-GY

== ENCOUNTER 2021-05-26 22:52 | Emergency (ER) | payer OTHER ==
[2021-05-26] MEDS ORDERED: Cyclobenzaprine 10 MG Tab PO ONE (22:53)
[2021-05-26] MEDS ORDERED: Sodium Chloride 0.9% 1,000 ML IV ONE (23:44)
[2021-05-26] MEDS ORDERED: Sodium Chloride 0.9% 10 ML Syringe FLUSH PRN (23:44)
[2021-05-27 00:16] LABS: ANION GAP 13.6 mEq/L (7-13); CHLORIDE,CL 100 mmol/L (98-107); ESTIMATED GFR > 60; SODIUM,NA 137 mmol/L (136-145)
[2021-05-27] MEDS ORDERED: Cyclobenzaprine 10 MG Tab ONE (00:40)
[2021-05-27 01:05] VITALS: BP 123/79; PULSE 78
== END 2021-05-27 01:01 | disposition home or self-care (01) ==
LOC: DL.ED 22:52
DX: R25.2 Cramp and spasm (principal)
CPT/HCPCS: 36415; 80053; 85025; 99283; A9270; J7030; 99282

== ENCOUNTER 2022-08-04 21:58 | Emergency (ER) | payer MEDICAID, OTHER ==
[2022-08-05 00:09] VITALS: BP 121/87; PULSE 55
== END 2022-08-05 01:06 | disposition home or self-care (01) ==
LOC: DL.ED 21:58
DX: S69.91XA Unspecified injury of right wrist, hand and finger(s), initial encounter (principal); F17.210 Nicotine dependence, cigarettes, uncomplicated; X50.3XXA Overexertion from repetitive movements, initial encounter
CPT/HCPCS: 73100-RT; 99282; 99283

== ENCOUNTER 2022-11-09 13:55 | Emergency (ER) | payer MEDICAID ==
[2022-11-09] MEDS ORDERED: Dexamethasone 4 MG/ML SDV IM ONE (15:11)
[2022-11-09 15:42] VITALS: BP 109/81; PULSE 72
== END 2022-11-09 15:31 | disposition home or self-care (01) ==
LOC: DL.ED 13:55
DX: T63.441A Toxic effect of venom of bees, accidental (unintentional), initial encounter (principal)
CPT/HCPCS: 96372; 99282; J1100

== ENCOUNTER 2023-05-31 22:16 | Emergency (ER) | payer BC, MEDICAID ==
[2023-05-31 23:48] VITALS: BP 120/85; PULSE 70
== END 2023-06-01 01:13 | disposition home or self-care (01) ==
LOC: DL.ED 22:16
DX: L98.9 Disorder of the skin and subcutaneous tissue, unspecified (principal); Z48.00 Encounter for change or removal of nonsurgical wound dressing; F17.210 Nicotine dependence, cigarettes, uncomplicated
CPT/HCPCS: 99282; 99283

== ENCOUNTER 2023-12-15 20:13 | Emergency (ER) | payer BC, OTHER ==
[2023-12-15 20:58] VITALS: BP 131/87; PULSE 77
== END 2023-12-15 21:48 | disposition home or self-care (01) ==
LOC: DL.ED 20:13
DX: S61.212A Laceration without foreign body of right middle finger without damage to nail, initial encounter (principal); Z87.891 Personal history of nicotine dependence; W31.89XA Contact with other specified machinery, initial encounter
CPT/HCPCS: 12001; 73140-F7; 99282; 99283

== ENCOUNTER 2024-09-13 20:49 | Emergency (ER) | payer BC, MEDICAID ==
[2024-09-13] MEDS ORDERED: Sodium Chloride 0.9% 10 ML Syringe FLUSH PRN (21:12)
[2024-09-13 21:23] LABS: BASOPHILS PERCENT AUTO 0.3 % (0.0-1.0); EOSINOPHILS PERCENT AUTO 6.9 % (1.0-3.0); LYMPHOCYTES PERCENT AUTO 19.8 % (20.5-50.1); MONOCYTES PERCENT AUTO 7.4 % (2-8); NEUTROPHILS PERCENT AUTO 65.6 % (42.2-75.2); PLATELET COUNT,PLT 277 10^3/uL (150-450); RED BLOOD CELL COUNT 4.14 10^6/uL (4.6-6.2); WHITE BLOOD CELL COUNT,WBC 11.6 10^3/uL (5.0-10.0)
[2024-09-13 21:49] LABS: A/G RATIO 1.0; ALANINE AMINOTRANSFERASE,ALT 19.0 U/L (16-63); ASPARTATE AMNIOTRANSFERASE,AST 13.0 U/L (15-37); BILIRUBIN TOTAL 0.2 mg/dL (0.2-1.0); BLOOD UREA NITROGEN,BUN 9.0 mg/dL (7-18); CARBON DIOXIDE,CO2 29.0 mmol/L (21-32); CHLORIDE,CL 106.0 mmol/L (98-107); CREATININE 1.03 mg/dL (0.70-1.30); D-DIMER QUANTITATIVE 410.0 ng/mL (0-400); EST CRCL DRUG DOSING (CG) 75.39 mL/min; GLUCOSE RANDOM 95.0 mg/dL (70-99); INR 0.9 (0.9-1.2); POTASSIUM,K 3.6 mmol/L (3.5-5.1); PROTEIN TOTAL,TP 7.3 g/dL (6.4-8.2); PTT,PARTIAL THROMBOPLSTIN TIME 28.6 SEC (22.0-34.0); SODIUM,NA 142.0 mmol/L (136-145)
[2024-09-13 21:52] LABS: LACTIC ACID 1.0 mmol/L (0.4-2.0)
[2024-09-13 21:55] LABS: AMPHETAMINES,URINE NEGATIVE (NEGATIVE); BARBITURATES,URINE NEGATIVE (NEGATIVE); MDMA (ECSTASY), URINE NEGATIVE (NEGATIVE); METHAMPHETAMINES,URINE NEGATIVE (NEGATIVE); OPIATES,URINE NEGATIVE (NEGATIVE); OXYCODONE,URINE NEGATIVE (NEGATIVE); PHENCYCLIDINE,URINE NEGATIVE (NEGATIVE); TCA,URINE NEGATIVE (NEGATIVE)
[2024-09-13 21:57] LABS: ESTIMATED GFR 98.0 mL/min (>=60)
[2024-09-13 23:36] VITALS: BP 128/92; PULSE 65
== END 2024-09-14 00:20 | disposition home or self-care (01) ==
LOC: DL.ED 20:49
DX: L03.113 Cellulitis of right upper limb (principal); I80.9 Phlebitis and thrombophlebitis of unspecified site
CPT/HCPCS: 36415; 80053; 80305-QW; 83605; 85025; 85379; 85610; 85730; 86140; 87040; 93971; 99284; A9270-GY

== ENCOUNTER 2024-09-15 13:20 | Emergency (ER) | payer MEDICAID ==
[2024-09-15 14:24] VITALS: BP 96/66; PULSE 68
== END 2024-09-15 14:18 | disposition home or self-care (01) ==
LOC: DL.ED 13:20
DX: I80.8 Phlebitis and thrombophlebitis of other sites (principal); F17.200 Nicotine dependence, unspecified, uncomplicated; Z79.899 Other long term (current) drug therapy
CPT/HCPCS: 99283

== ENCOUNTER 2024-12-07 16:35 | Emergency (ER) | payer MEDICAID ==
[2024-12-07 16:51] VITALS: BP 134/80; PULSE 98
[2024-12-07] MEDS: Ketorolac 30 MG/ML SDV IM ONE (19:49)
== END 2024-12-07 19:51 | disposition home or self-care (01) ==
LOC: DL.ED 16:35
DX: S62.025A Nondisplaced fracture of middle third of navicular [scaphoid] bone of left wrist, initial encounter for closed fracture (principal); Z79.899 Other long term (current) drug therapy; W19.XXXA Unspecified fall, initial encounter
CPT/HCPCS: 29125; 73110; 96372; 99283; A9270; J1885